=== PATIENT | female | born 1950 | race Caucasian/White ===

== ENCOUNTER 2021-05-03 14:57 | Emergency (ER) | payer MEDICARE, OTHER ==
[~2021-05-03] VITALS: Ht 167.6 cm; Wt 87.2 kg
[2021-05-03] MEDS ORDERED: LISINOPRIL10 MG PO (15:42)
[2021-05-03] MEDS ORDERED: PROTONIX20 M1 PO (15:43)
[2021-05-03] MEDS ORDERED: LIPITOR20 M1 PO (15:43)
[2021-05-03] MEDS ORDERED: SERTRALINE50 MG PO (15:44)
[2021-05-03] MEDS ORDERED: NAPROXEN500 MG PO (16:52)
[2021-05-03 17:01] VITALS: BP 104/62
[2021-05-03] MEDS ORDERED: ULTRAM50 M1 PO (17:32)
== END 2021-05-03 17:37 | disposition home or self-care (01) ==
LOC: ED 14:57
PROC: 0HQ0XZZ Repair Scalp Skin, External Approach (ICD-10-PCS; principal; 2021-05-03)
DX: S01.01XA Laceration without foreign body of scalp, initial encounter (principal); I10 Essential (primary) hypertension; F32.A Depression, unspecified; E78.00 Pure hypercholesterolemia, unspecified; K21.9 Gastro-esophageal reflux disease without esophagitis; W01.198A Fall on same level from slipping, tripping and stumbling with subsequent striking against other object, initial encounter; Y93.89 Activity, other specified; Y92.838 Other recreation area as the place of occurrence of the external cause

== ENCOUNTER 2021-05-09 15:36 | Emergency (ER) | payer MEDICARE, OTHER ==
[~2021-05-09] VITALS: Ht 167.6 cm; Wt 86.0 kg
[~2021-05-09 15:36] MED LIST: LIPITOR20 M1 PO; LISINOPRIL10 MG PO; NAPROXEN500 MG PO; PROTONIX20 M1 PO; SERTRALINE50 MG PO; ULTRAM50 M1 PO
[2021-05-09 16:51] VITALS: BP 136/75
[2021-05-09 17:00] VITALS: BP 126/65
[2021-05-09 17:30] VITALS: BP 126/65
== END 2021-05-09 17:30 | disposition home or self-care (01) ==
LOC: ED 15:36
DX: S01.01XD Laceration without foreign body of scalp, subsequent encounter (principal); I10 Essential (primary) hypertension; F32.A Depression, unspecified; E78.00 Pure hypercholesterolemia, unspecified; K21.9 Gastro-esophageal reflux disease without esophagitis; X58.XXXD Exposure to other specified factors, subsequent encounter